=== PATIENT | male | born 1950 ===

== ENCOUNTER 2021-03-31 04:07 | Outpatient (CLI) | payer BC, SELFPAY ==
[2021-03-31 13:01] LABS: ALT 28 U/L (16-63); AST 20 U/L (15-37); Albumin 3.8 g/dL (3.4-5.0); Alkaline Phosphatase 63 U/L (46-116); Anion Gap 6.2 mmol/L (3-11); BUN 20 mg/dL (7-18); CO2 30.8 mmol/L (21.0-32.0); Calcium 9.2 mg/dL (8.5-10.1); Calculated LDL 118 mg/dL (<100); Chloride 106 mmol/L (98-107); Cholesterol 184 mg/dL (<200); Glucose 92 mg/dL (74-106); HDL Cholesterol 54 mg/dL (40-60); Potassium 4.3 mmol/L (3.5-5.1); Sodium 143 mmol/L (136-145); Total Protein 6.8 g/dL (6.4-8.2); Triglyceride 60 mg/dL (<150)
[2021-03-31 13:06] LABS: Hemoglobin A1C 5.4 % (<5.7)
== END 2021-03-31 04:08 | disposition home or self-care (01) ==
LOC: LOS 04:08
PROVIDERS: PCP Nurse Practitioner Family; Visit Provider Nurse Practitioner Family
DX: R03.0 Elevated blood-pressure reading, without diagnosis of hypertension (principal); Z13.220 Encounter for screening for lipoid disorders; Z13.1 Encounter for screening for diabetes mellitus
CPT/HCPCS: 36415; 80053; 80061; 83036

== ENCOUNTER → 2023-06-15 14:18 | Outpatient (CLI) | payer MEDICARE, SELFPAY ==
--- NOTE | 2023-06-15 12:30 | DI.RAD_ITS ---
Exam(s) XR LUMBAR SPINE COMPLETE EXAM: XR LUMBAR SPINE COMPLETE CLINICAL HISTORY: Lower back pain with radiating pain on right,m54.50. TECHNIQUE: 2D digital imaging was performed. Five views. COMPARISON: No exams were available for comparison FINDINGS: BONES: No fracture or destructive lesion. Vertebral body heights are maintained. Small endplate oste ophytes. DISKS: Mild narrowing of the L2-3 and L3-4 disc spaces. Moderate to severe narrowing of the L4-5 dis c space. Severe narrowing of the L5-S1 disc space. Facet degenerative changes present throughout, g reatest at L3-4 through L5-S1. The hip joint spaces are maintained. SI joints are unremarkable. ALIGNMENT: Lumbar spinal alignment is within normal limits. SOFT TISSUE: Normal. IMPRESSION: Degenerative changes, greatest at L4-5 and L5-S1. DATA REPOSITORY: RADIATION DOSE DELIVERED:
== END ==
PROVIDERS: PCP Nurse Practitioner Family; Visit Provider Nurse Practitioner Family
DX: M47.816 Spondylosis without myelopathy or radiculopathy, lumbar region (principal); M47.817 Spondylosis without myelopathy or radiculopathy, lumbosacral region
CPT/HCPCS: 72110

== ENCOUNTER 2025-07-17 09:16 | Outpatient (CLI) | payer MEDICARE, SELFPAY ==
[2025-07-17 14:39] LABS: Anion Gap 8.5 mmol/L (3-11); BUN 21 mg/dL (9-23); CO2 29.5 mmol/L (20.0-31.0); Calcium 9.0 mg/dL (8.3-10.6); Chloride 106 mmol/L (98-107); Cholesterol 178 mg/dL (<200); Glucose 93 mg/dL (74-106); HDL Cholesterol 55 mg/dL (>40); Potassium 4.3 mmol/L (3.5-5.1); Sodium 144 mmol/L (136-145)
[2025-07-17 22:49] LABS: PSA, Screening 2.3 ng/mL (<=6.5)
[2025-07-17 23:30] LABS: Hepatitis C Ab w Rflx HCV PCR Negative (Negative)
== END 2025-07-17 09:17 | disposition home or self-care (01) ==
PROVIDERS: PCP Family Medicine; Visit Provider Family Medicine
DX: Z13.6 Encounter for screening for cardiovascular disorders (principal); Z12.5 Encounter for screening for malignant neoplasm of prostate; Z11.59 Encounter for screening for other viral diseases; Z13.1 Encounter for screening for diabetes mellitus; I10 Essential (primary) hypertension
CPT/HCPCS: 36415; 80048; 80061; 84153; 86803